=== PATIENT | female | born 1970 | race Caucasian/White ===

== ENCOUNTER 2024-03-28 07:21 | Emergency (ER) | payer BC, SELFPAY ==
[2024-03-28 07:23] VITALS: BP 116/76
--- NOTE | 2024-03-28 07:54 | ED.GENMED ---
History of Present Illness
General
Chief Complaint: Rectal Bleeding
Source: patient
Exam Limitations: none
Time Seen by Provider: 03/28/24 07:32
Nursing documentation reviewed up to this point in time: agreed with
History of Present Illness
History of Present Illness:
54-year-old female presenting to the emergency department today with concerns of diarrhea starting last night this morning she noticed blood with a diarrhea event. Stools been very loose she has had significant discomfort to the abdomen mainly to
the left lower quadrant. Denies any upper abdominal pain she has had nausea no vomiting no fevers no chest pain or shortness of breath no recent international travel or recent travel. No sick contacts. No history of GI issues.
Review of Systems
Review of Systems
Allergies reviewed?: Yes
All Other Systems: ROS reviewed and negative except as documented in HPI and ROS
Phy Exam
Physical Exam
Physical Exam:
GENERAL: Alert , in no apparent distress
EYE: pupils equal and reactive
NECK: Supple, no significant adenopathy.
ENT: o/p clr, mmm.
CARDIAC: Regular rate and rhythm .
LUNGS: Clear breath sounds bilaterally, no acute respiratory distress, no wheezes/rales/rhonchi
ABDOMEN: Vague discomfort throughout the lower abdomen maximal discomfort to the left lower quadrant. No upper abdominal pain to palpation.
NEUROLOGICAL: Alert and oriented, no focal neuro deficits
SKIN: Warm and dry, skin intact.
MUSCULOSKELETAL: No edema, well perfused.
PSYCH: Normal and appropriate interaction.
Course
Orders/Labs/Results
Orders:
Orders
03/28/24 07:50
CT Abd/Pel (IV only)-DH only Urgent
Comment:
Reason For Exam: lower abd pain
0.9% Sodium Chloride 1000 ml [Nss] 1,000 ml IV BOLUS
HYDROmorphone [Dilaudid] 0.5 mg IV NOW STA
Ondansetron Injectable [Zofran] 4 mg IV NOW STA
Test Result ONCE
03/28/24 07:59
Beta HCG Quantitative Urgent
Complete Blood Count/With Diff Urgent
Comprehensive Metabolic Panel Urgent
HCG, Serum Qualitative Screen Urgent
Urinalysis Reflex To Culture Urgent
Date Specimen was Collected: 03/28/24
Time Specimen was Collected: 07:57
Urine Microscopic Reflex Cult Urgent
03/28/24 08:00
Lactic Acid Urgent
STOOL [C difficile Antigen & Toxins] Urgent
VALORIE Source: Feces/Stool
Specimen Description:
Date Specimen was Collected: 03/28/24
Time Specimen was Collected: 07:57
Stool Culture Urgent
VALORIE Source: Feces/Stool
Specimen Description:
Date Specimen was Collected: 03/28/24
Time Specimen was Collected: 07:57
03/28/24 08:46
Add On- LAB Urgent
Tests Added?: hcg quant
03/28/24 09:46
Dicyclomine HCl [Bentyl] 20 mg IM NOW STA
Abnormal Lab Results
03/28/24
07:59
MPV 11.2 H fL
(7.4-10.4)
Abs Immat Gran (auto) 0.1 H 10^3/uL
(0-0.05)
Absolute Neuts (auto) 8.2 H 10^3/uL
(1.4-6.5)
Neutrophils % 77.5 H %
(42.2-75.2)
Lymphocytes % 17.9 L %
(20.5-51.1)
BUN 21 H mg/dl
(7-17)
Glucose 106 H mg/dl
(70-99)
Ur Occult Blood Reflex 4+ A
(Negative)
Urine RBC 3-6 A /HPF
(0-2)
03/28/24 07:59
03/28/24 07:59
Vital Signs
Initial and Last Documented VS:
Initial Vital Signs
Temp Pulse Resp BP Pulse Ox
98.0 F 80 16 116/76 98
03/28/24 07:23 03/28/24 07:23 03/28/24 07:23 03/28/24 07:23 03/28/24 07:23
Last Documented Vital Signs
Temp Pulse Resp BP Pulse Ox
98.0 F 70 16 116/74 100
03/28/24 07:23 03/28/24 09:19 03/28/24 09:19 03/28/24 09:19 03/28/24 09:19
MDM/Problems Addressed
MDM/Problems Addressed:
54-year-old female presenting to the emergency department today with concerns of bloody diarrhea this morning. Loose bowel movement starting last night multiple episodes since. Nausea but no vomiting. No fevers no chest pain or shortness of
breath no recent travel. No recent sick contacts. Patient does have tenderness throughout the lower abdomen. Otherwise here vital signs are normal. Afebrile. Patient without significant bleeding with subsequent bowel movements here hemoglobin
10.4. Initial discomfort to the abdomen resolved after medication patient claims symptoms significantly improved. Afebrile. Patient's hCG test ended up being positive and serum. Quantitative hCG of 3.97. This was discussed with the patient is
possible very early or some alternate cause of an elevation. She was advised very close follow-up for this and she claim that she will follow-up very closely with her industrial machinery mechanic. Because of the possibility of early CT scan
was not ordered but considering her symptoms were significantly improved after treatment this seems reasonable to hold. She was given very strict return precautions for any progressive or worsening symptoms.
*Critical Care Note
Total Time (30-74mins, 75-104mins- exclusive of procedures): Not Applicable
ED Attending Note
-
Portions of this chart may have been created with voice recognition software.� Occasional wrong word or��sound alike� substitutions may have occurred due to the inherent limitations of voice recognition software.
Discharge Plan
Departure
Patient Disposition: Home (Routine Discharge)
Date of Disposition: 03/28/24
Time of Disposition: 11:58
Patient with high blood pressure during this ER visit?: No
Condition: Good
Covid-19: Not Applicable
Discharge Problem:
Positive test, Colitis, Bloody diarrhea
Instructions: Gastrointestinal Bleeding (DC), hCG Test
Prescriptions:
New
dicyclomine 10 mg capsule
10 mg PO QID PRN (Reason: abdominal pain) Qty: 10 0RF
ondansetron 4 mg tablet,disintegrating
4 mg PO Q6H PRN (Reason: nausea and vomiting) Qty: 7 0RF
oxycodone 5 mg tablet
5 mg PO Q8H PRN (Reason: Pain) Qty: 7 0RF
No Action
inulin-sorbitol 2 gram Tablet,Chewable
2 tab PO DAILYPRN PRN (Reason: CONSTIPATION)
melatonin 5 mg Tablet,Chewable
5 mg PO HSPRN PRN (Reason: SLEEP)
Mounjaro 7.5 mg/0.5 mL Pen Injector
7.5 mg SC WE
ashwagandha extract 120 mg Capsule
120 mg PO DAILY
Referrals:
Jak Berry DO [Family Provider] -
Peg Page MD [Active] - Follow up in 5-7 days
Activity Restrictions/Additional Instructions:
You came to the emergency department today with concerns of bloody diarrhea. Here you had culture sent these are currently pending with the result if they are positive you will be contacted. Otherwise the rest of your examination was reassuring
you did have improved symptoms. Please follow-up very closely with her industrial machinery mechanic due to your positive hCG test. The quantitative hCG was 3.97. You are given a prescription for repeated in 2 days but should follow-up closely with a industrial machinery mechanic
in this regard. Return to the emergency department for any worsening, new or concerning symptoms.
Interventions
Interventions:
*Risk Screen - Suicide Last Done: 03/28/24 07:45
*General Assessment Last Done: 03/28/24 07:45
*Neglect/Abuse Screening Last Done: 03/28/24 07:45
ED- Fall Risk Assessment Last Done: 03/28/24 08:00
*ED COVID-19 Vaccine History Last Done: 03/28/24 07:24
LL-Btxbqx-Mfhampirwd Assessment Last Done: 03/28/24 08:00
ED- Cardiac Assessment Last Done: 03/28/24 08:00
ED- Pulmonary Assessment Last Done: 03/28/24 08:00
Discharge Date and Time
Print Language: [place]
[2024-03-28] MEDS: DILAUDID 0.5 MG IV (08:12)
[2024-03-28] MEDS: NSS 1000 IV (08:12)
[2024-03-28] MEDS: ZOFRAN 4 MG IV (08:12)
[2024-03-28 08:17] LABS: % Basophils 0.2 % (0-2); % Eosinophils 0.4 % (0-6); % Immature Granulocytes 0.5 % (0-0.5); % Lymphocytes 17.9 % (20.5-51.1); % Monocytes 3.5 % (1.7-9.3); % Neutrophils 77.5 % (42.2-75.2); Absolute Immature Granulocytes 0.1 10^3/uL (0-0.05); Absolute Lymphocytes 1.9 10^3/uL (1.2-3.4); Absolute Monocytes 0.4 10^3/uL (0.1-0.6); Absolute Neutrophils 8.2 10^3/uL (1.4-6.5); Hematocrit 41.7 % (37.0-47.0); Hemoglobin 14.4 g/dL (12.0-16.0); Mean Corp Hgb Conc. 34.5 g/dL (33.0-37.0); Mean Corpuscular Volume 86.9 fL (81.0-99.0); Mean Platelet Volume 11.2 fL (7.4-10.4); Nucleated Red Blood Cells % 0 %; Platelet Count 227 10^3/uL (130-400); Red Cell Dist. Width 12.7 % (11.5-14.5); White Blood Cell Count 10.5 10^3/uL (4.8-10.8)
[2024-03-28 08:18] LABS: Urine Albumin Negative (Neg - Trace); Urine Bilirubin Negative (Negative); Urine Character Clear (Clear); Urine Color Yellow; Urine Glucose Negative (Negative); Urine Ketone Negative (Negative); Urine Leukocyte Negative (Negative); Urine Nitrite Negative (Negative); Urine Occult Blood 4+ (Negative); Urine Urobilinogen Negative (Neg - 1+)
[2024-03-28 08:31] LABS: ALT (SGPT) 16 U/L (0-35); AST (SGOT) 22 U/L (14-36); Albumin 4.7 g/dl (3.5-5.0); Alkaline Phosphatase 62 U/L (38-126); Blood Urea Nitrogen 21 mg/dl (7-17); Calcium 10.1 mg/dl (8.4-10.2); Carbon Dioxide 25 mmol/L (22-30); Chloride 105 mmol/L (98-107); Glucose 106 mg/dl (70-99); Potassium 4.6 mmol/L (3.5-5.1); Sodium 139 mmol/L (135-145); Total Bilirubin 0.5 mg/dl (0.2-1.3); Total Protein 6.8 g/dl (6.3-8.2); eGFR > 60.00
[2024-03-28 08:34] LABS: Lactic Acid 1.1 mmol/L (0.7-2.0)
[2024-03-28 08:35] LABS: Urine Mucus Few; Urine Squamous Cell 0-2 /LPF (Few)
--- NOTE | 2024-03-28 08:35 | EDRN ---
IV started in the bathroom as the patient was curled up in the corner feeling she was unable to leave the bathroom due to N/V/D and full sensation in the lower abdomen. Clean area set up with sheet and IV started without complications. Labs drawn
and sent. Stool specimen obtained as documented in assessment. Urine specimen obtained 50ml and sent to the lab.
[2024-03-28 08:37] LABS: Urine White Cell 0-2 /HPF (0-5)
[2024-03-28 08:42] LABS: HCG, Serum Qualitative Screen Positive
[2024-03-28 09:19] VITALS: BP 116/74
[2024-03-28 09:40] LABS: Beta HCG Quantitative 3.97 mIU/ml
[2024-03-28] MEDS: BENTYL 20 MG IM (10:09)
[2024-03-28 12:34] VITALS: BP 112/72
== END 2024-03-28 12:30 | disposition home or self-care (01) ==
LOC: EMR 07:21
PROVIDERS: Physician Assistant; EMERGENCY PHYSICIAN Emergency Medicine; FAMILY PHYSICIAN Family Medicine
DX: Z32.01 Encounter for pregnancy test, result positive (principal); K52.9 Noninfective gastroenteritis and colitis, unspecified; K92.1 Melena
CPT/HCPCS: 99282; 96374; 96375; 96372; 96361; 80053; 81003; 81015; 83605; 84702; 84703; 85025; 87045; 87046; 87324; 87427; 87449

== ENCOUNTER → 2025-02-04 13:01 | Outpatient (REF) | payer BC, SELFPAY | LOC: RAD 13:01 | PROVIDERS: ATTENDING PHYSICIAN Family Medicine | DX: M25.511 Pain in right shoulder (principal) | CPT/HCPCS: 73030 ==

== ENCOUNTER 2025-04-25 16:54 | Emergency (ER) | payer BC, SELFPAY ==
[2025-04-25 16:57] VITALS: BP 112/86
--- NOTE | 2025-04-25 17:08 | EDRN ---
pt arrived via ems. patient took zofran odt at home and ems gave 4mg iv
[2025-04-25 17:21] LABS: Hematocrit 41.7 % (37.0-47.0); Hemoglobin 14.5 g/dL (12.0-16.0); Mean Corp Hgb Conc. 34.8 g/dL (33.0-37.0); Mean Corpuscular Volume 88.2 fL (81.0-99.0); Nucleated Red Blood Cells % 0 %; Platelet Count 189 10^3/uL (130-400); Red Cell Dist. Width 12.5 % (11.5-14.5)
[2025-04-25 17:36] LABS: Urine Character Clear (Clear)
[2025-04-25 17:38] LABS: ALT (SGPT) 19 U/L (0-35); AST (SGOT) 22 U/L (14-36); Albumin 4.7 g/dl (3.5-5.0); Alkaline Phosphatase 57 U/L (38-126); Blood Urea Nitrogen 20 mg/dl (7-17); Calcium 9.9 mg/dl (8.4-10.2); Carbon Dioxide 24 mmol/L (22-30); Chloride 108 mmol/L (98-107); Glucose 98 mg/dl (70-99); Lipase 78 U/L (23-300); Potassium 4.4 mmol/L (3.5-5.1); Sodium 139 mmol/L (135-145); Total Protein 7.1 g/dl (6.3-8.2); eGFR > 60.00
[2025-04-25 18:03] LABS: COVID-19 Antigen Negative (Negative)
[2025-04-25 18:15] LABS: Urine Red Blood Cell 50-60 /HPF (0-2); Urine White Cell 0-2 /HPF (0-5)
[2025-04-25 21:08] VITALS: BP 124/74
[2025-04-25] MEDS: TORADOL 30 MG IV (21:25)
[2025-04-25] MEDS: NSS 1000 IV (21:26)
[2025-04-25] MEDS: ZOFRAN 4 MG IV (21:49)
[2025-04-25] MEDS: ZOFRAN ODT (ORALLY DISINTEGRATING) 4 MG PO (22:39)
[2025-04-25 22:41] VITALS: BP 109/69
--- NOTE | 2025-04-26 01:44 | ED.GENMED ---
History of Present Illness
General
Chief Complaint: Abdominal Symptoms
Source: patient
Exam Limitations: none
Time Seen by Provider: 04/25/25 20:48
Nursing documentation reviewed up to this point in time: agreed with
History of Present Illness
History of Present Illness:
Patient to ED with complaint of nausea and vomiting. Symptoms started last night and continued through today Denies fever but felt chilled. No diarrhea. To ED accompanied by spouse
Past History
Past History
ED Past Medical History: None
ED Past Surgical History: None
Review of Systems
Review of Systems
Allergies reviewed?: Yes
All Other Systems: ROS reviewed and negative except as documented in HPI and ROS
Constitutional: Reports no symptoms
EENT: Reports no symptoms
Respiratory: Reports no symptoms
Cardiac: Reports no symptoms
ABD/GI: Reports nausea and vomiting
: Reports no symptoms
Musculoskeletal: Reports no symptoms
Skin: Reports no symptoms
Neurological: Reports no symptoms
Psychiatric: Reports no symptoms
Phy Exam
General Physical Exam
General Presentation: moderate distress
General age: appears stated age
General Skin: warm and dry
General Habitus: normal
General Mental: alert
Cardiovascular Exam
Cardiovascular Exam: regular rate/rhythm and no edema
Gastrointestinal Exam
Gastrointestinal Exam: normal bowel sounds, non tender, soft, no organomegaly, no pulsatile mass and non distended
Musculoskeletal Exam
Musculoskeletal Exam: full ROM
Skin Exam
Skin Exam: normal color, warm/dry and no rash
Psychiatric Exam
Psychiatric Exam: normal mood/affect
Course
Orders/Labs/Results
Orders:
Orders
04/25/25 17:02
IV Insert/Care/Rem.- Treatment PRN
04/25/25 17:07
COVID-19 Antigen Urgent
Source: Nasal Swab
Complete Blood Count/With Diff Urgent
Comprehensive Metabolic Panel Urgent
Lipase Urgent
Urinalysis Reflex To Culture Urgent
Date Specimen was Collected: 04/25/25
Time Specimen was Collected: 17:02
Urine Microscopic Reflex Cult Urgent
Influenza A+B Rapid Molecular Urgent
VALORIE Source: Nasal Swab
Specimen Description:
04/25/25 21:16
0.9% Sodium Chloride 1000 ml [Nss] 1,000 ml IV BOLUS
Ketorolac [Toradol] 30 mg IV NOW STA
04/25/25 21:46
Ondansetron Injectable [Zofran] 4 mg .ROUTE .STK-MED ONE
04/25/25 21:48
Ondansetron Injectable [Zofran] 4 mg IV NOW STA
04/25/25 22:36
Ondansetron Orally Disint [Zofran Odt (Orally Disintegrating)] 4 mg PO NOW STA
Abnormal Lab Results
04/25/25
17:07
MPV 10.6 H fL
(7.4-10.4)
Absolute Neuts (auto) 6.7 H 10^3/uL
(1.4-6.5)
Absolute Lymphs (auto) 0.5 L 10^3/uL
(1.2-3.4)
Neutrophils % 89.5 H %
(42.2-75.2)
Lymphocytes % 6.7 L %
(20.5-51.1)
Chloride 108 H mmol/L
(98-107)
BUN 20 H mg/dl
(7-17)
Urine Ketones 1+ A
(Negative)
Ur Occult Blood Reflex 4+ A
(Negative)
Urine RBC 50-60 A /HPF
(0-2)
Urine Bacteria (Reflex) Few A
(Negative)
Urine Albumin (Reflex) 1+ A
(Neg - Trace)
04/25/25 17:07
04/25/25 17:07
Vital Signs
Initial and Last Documented VS:
Initial Vital Signs
Temp Pulse Resp BP Pulse Ox
98.8 F 89 16 112/86 98
04/25/25 16:57 04/25/25 16:57 04/25/25 16:57 04/25/25 16:57 04/25/25 16:57
Last Documented Vital Signs
Temp Pulse Resp BP Pulse Ox
98.9 F 89 16 109/69 95
04/25/25 21:15 04/25/25 16:57 04/25/25 16:57 04/25/25 22:41 04/26/25 01:46
*Pulse Oximetry
SaO2: 95
Oxygen Mode of Delivery: Room air
Patient hypoxic: no
*Critical Care Note
Total Time (30-74mins, 75-104mins- exclusive of procedures): Not Applicable
Update Note
Update Note:
Patient to ED with complaint of nausea and vomiting x 24 hours. No fever/chills, no abd. pain. Labs reviewed. WBC normal. Bun 22. given IVF, zofran in ED with significant improvement. Denies any further n/v. Tolerating po fluids. WIll
discharge home. SHe will continue PO fluids, advance as tolerated. Given instructions on s/s to returm to ED and she is agreeable to plan.
ED Attending Note
-
Portions of this chart may have been created with voice recognition software.� Occasional wrong word or��sound alike� substitutions may have occurred due to the inherent limitations of voice recognition software.
Discharge Plan
Departure
Patient Disposition: Home (Routine Discharge)
Date of Disposition: 04/25/25
Time of Disposition: 22:36
Patient with high blood pressure during this ER visit?: No
Condition: Good
Covid-19: Not Applicable
Discharge Problem:
Vomiting and diarrhea
Instructions: Diarrhea in teens and adults, Clear Liquid Diet, Dehydration, Adult (DC), Nausea and Vomiting, Adult (DC)
Prescriptions:
New
ondansetron 4 mg tablet,disintegrating
4 mg PO TID PRN (Reason: nausea and vomiting) 4 Days Qty: 12 0RF
No Action
inulin-sorbitol 2 gram Tablet,Chewable
2 tab PO DAILYPRN PRN (Reason: CONSTIPATION)
melatonin 5 mg Tablet,Chewable
5 mg PO HSPRN PRN (Reason: SLEEP)
Mounjaro 7.5 mg/0.5 mL Pen Injector
7.5 mg SC WE
ashwagandha extract 120 mg Capsule
120 mg PO DAILY
dicyclomine 10 mg capsule
10 mg PO QID PRN (Reason: abdominal pain) Qty: 10 0RF
ondansetron 4 mg tablet,disintegrating
4 mg PO Q6H PRN (Reason: nausea and vomiting) Qty: 7 0RF
oxycodone 5 mg tablet
5 mg PO Q8H PRN (Reason: Pain) Qty: 7 0RF
Referrals:
Jak Berry DO [Family Provider, Family Practice] - Follow up in 2-3 days
Activity Restrictions/Additional Instructions:
Return to the emergency department immediately for any changes in/worsening of your symptoms.
Interventions
Interventions:
*Risk Screen - Suicide Last Done: 04/25/25 16:57
*General Assessment Last Done: 04/25/25 21:00
*Neglect/Abuse Screening Last Done: 04/25/25 21:00
*Nursing Disposition Last Done: 04/25/25 22:52
PI-Snoxxb-Supmcfjfuh Assessment Last Done: 04/25/25 21:05
Discharge Date and Time
Discharge Date/Time: 04/25/25 22:52
Print Language: [place]INID[place]
== END 2025-04-25 22:52 | disposition home or self-care (01) ==
LOC: EMR 16:54
PROVIDERS: Emergency Medicine; EMERGENCY PHYSICIAN Emergency Medicine; FAMILY PHYSICIAN Family Medicine
DX: R11.2 Nausea with vomiting, unspecified (principal); R19.7 Diarrhea, unspecified; Z11.52 Encounter for screening for COVID-19
CPT/HCPCS: 80053; 81003; 81015; 83690; 85025; 87502; 87811; 96361; 96374; 96375; 99284